=== PATIENT | female | born 1955 | race Caucasian/White ===

== ENCOUNTER 2022-01-25 12:09 | Emergency (ER) | payer MEDICARE, SELFPAY ==
[2022-01-25 12:21] VITALS: BP 150/86; PULSE 87; RESP 14; TEMP 36.6; O2SAT 99
--- NOTE | 2022-01-25 12:37 | ED.EXTPRO ---
HPI - Extremity Problem General Chief complaint: Extremity Injury, Lower Stated complaint: Both Knee Pain Time Seen by Provider: 01/25/22 12:40 Source: patient and RN notes reviewed Mode of arrival: ambulatory Limitations: no limitations History of Present Illness HPI Narrative: 66-year-old female presents to the [facility] with complaints of both the aching and stiffness. Patient reports for last weeks she has had increased stiffness to her bilateral knees [place]. Patient reports that several years ago when she was working [place] she had fallen and was told to get an MRI which she never did. Patient is insisting on a medication called Olfin [place] which she was [place]. Patient does have full range of motion. No bruising, redness noted. Reports more of a stiffness and not a tenderness on palpation. Worse with movement. Currently does not have a primary care provider. Will refer 1 Related Data Allergies Allergy/AdvReac Type Severity Reaction Status Date / Time No Known Allergies Allergy Verified 01/25/22 12:31 Review of Systems Review of Systems: All systems reviewed & are unremarkable except as noted in HPI and below Constitutional: Constitutional: Reports no additional constitutional complaints, Denies chills and Denies fever(s) Eyes: Eyes: Reports no additional eye complaints ENT: Reports system reviewed and no additional complaints, except as documented Cardiovascular: Cardiovascular: Reports no additional cardiovascular complaints Respiratory: Respiratory: Reports no additional respiratory complaints Gastrointestinal: Gastrointestinal: Reports no additional gastrointestinal complaints Musculoskeletal: Musculoskeletal: Reports as per HPI, Reports arthralgias and Denies joint swelling Integumentary/Breasts: Skin/Breast: Reports system reviewed and no additional complaints, except as docu Neurologic: Reports system reviewed and no additional complaints, except as documented Psychiatric: Psychiatric: Reports no additional psychiatric complaints Allergic/Immunologic: Allergic/Immunologic: Reports no additional allergic/immunologic complaints PMFSH Comments At the time of my signature, I reviewed and agree with the nursing past medical, surgical, social, and family history. There is no relevant family history pertinent to the patient complaint. Exam Const: General: healthy appearing, no acute distress, alert and well nourished Nutritional Appearance: well nourished and obese Orientation/consciousness: patient oriented x3 Limitations: no limitations HENMT: Head: normal to inspection Ears: external ears normal Eyes: General: appearance normal, both eyes and all related structures Pupils: Equal, round and reactive pupils present Neck: Neck: normal visual inspection, no lymphadenopathy and no meningeal signs Chest: Chest palpation & inspection: normal inspection of the chest Resp: Effort & Inspection: normal respiratory effort and no use of accessory muscles Auscultation: clear to auscultation bilaterally, no crackles, no rales, no rhonchi and no wheezes Cardio: Rate: regular rate Rhythm: regular rhythm GI: GI Palp: Yes Soft to palpation and No Tenderness to palpation present (GI) Skin: General skin exam: normal color Rashes: no rashes Wounds: no wounds Neuro: General: patient oriented x3, moves all extremities, no meningeal signs and no focal motor deficits Cranial nerves: Yes Equal, round and reactive pupils present Speech: normal speech Gait exam (Neuro): Normal gait present Extrem: General: normal to inspection, full ROM and capillary refill normal Right lower extremity: knee Details: normal to inspection and normal ROM; no tenderness, no swelling, no lacerations, no ecchymosis, no penetrating wound and no deformity Left lower extremity: knee Details: normal to inspection and normal ROM; no tenderness and no swelling Psych: Appeara
== END 2022-01-25 12:56 | disposition home or self-care (01) ==
PROVIDERS: Emergency Provider Nurse Practitioner
DX: M25.562 Pain in left knee (principal); M25.561 Pain in right knee
CPT/HCPCS: 99203; G0463

== ENCOUNTER 2022-02-22 10:00 | Outpatient (CLI) | payer MEDICARE, SELFPAY ==
[2022-02-22 13:05] LABS: Basophils Absolute Auto 0.1 K/mm3 (0.0-0.1); Basophils Percent Auto 0.8 % (0.2-1.2); Eosinophils Absolute Auto 0.2 K/mm3 (0-0.3); Eosinophils Percent Auto 2.9 % (0-4.4); Hemoglobin 13.7 g/dL (12.0-15.0); Immature Granulocyte Absolute 0.01 K/mm3 (0.00-0.031); Immature Granulocyte Percent A 0.1 % (0-0.5); Lymphocytes Absolute Auto 1.99 K/mm3 (0.9-3.2); Lymphocytes Percent Auto 25.9 % (18.3-44.2); Mean Corpuscular HGB Conc 32.6 g/dl (32-36); Mean Corpuscular Hemoglobin 29.7 pg (26-34); Mean Corpuscular Volume 90.9 fl (80-100); Mean Platelet Volume 10.3 fl (7.4-10.4); Monocytes Absolute Auto 0.9 K/mm3 (0.1-0.6); Monocytes Percent Auto 11.2 % (2.6-8.5); Neutrophils Absolute Auto 4.6 K/mm3 (1.3-6.7); Neutrophils Percent Auto 59.1 % (45.5-73.1); Platelet Count Result 342 k/mm3 (150-375); Red Blood Count 4.62 M/mm3 (4.2-5.4); Red Cell Distribution Width 13.2 % (11.5-14.5); White Blood Count 7.7 K/mm3 (4.5-10.0)
[2022-02-22 13:09] LABS: Alanine Aminotransferase 28 U/L (6-35); Albumin Level 4.4 g/dL (3.5-5.1); Alkaline Phosphatase 150 U/L (38-126); Anion Gap 11 mmol/L (8-16); Aspartate Amino Transferase 53 U/L (14-36); Bilirubin,Total 0.7 mg/dL (0.2-1.3); Blood Urea Nitrogen 14 mg/dL (7-17); Calcium 9.3 mg/dL (8.4-10.2); Carbon Dioxide 28 mmol/L (22-30); Chloride 102 mmol/L (98-107); Cholesterol 225 mg/dL (0-200); Estimated Glomerular Filt Rate > 60; Glucose 106 mg/dL (65-110); HDL Direct 60 mg/dL; Potassium 4.2 mmol/L (3.4-5.0); Sodium 141 mmol/L (137-145); Triglycerides 96 mg/dL (<150)
[2022-02-22 13:20] LABS: LDL Cholesterol Direct 103 mg/dL
[2022-02-22 13:23] LABS: Vitamin D 25 Hydroxy 19.4 ng/mL
[2022-02-22 13:36] LABS: Thyroid Stimulating Hormone Reflex 0.945 uIU/mL (0.465-4.68)
[2022-02-22 14:11] LABS: Hemoglobin A1C 6.3 % (<5.7)
== END 2022-02-22 10:01 | disposition home or self-care (01) ==
LOC: ANHGOSHLAB 10:04
PROVIDERS: PCP Family Medicine; Visit Provider Family Medicine
DX: R03.0 Elevated blood-pressure reading, without diagnosis of hypertension (principal); Z79.899 Other long term (current) drug therapy; E55.9 Vitamin D deficiency, unspecified; E78.5 Hyperlipidemia, unspecified; E53.8 Deficiency of other specified B group vitamins; M25.561 Pain in right knee; M25.562 Pain in left knee; Z79.1 Long term (current) use of non-steroidal anti-inflammatories (NSAID); R73.9 Hyperglycemia, unspecified
CPT/HCPCS: 36415; 80053; 80061; 82306; 82607; 83036; 84443; 85025

== ENCOUNTER 2022-03-17 11:33 | Emergency (ER) | payer MEDICARE, SELFPAY ==
[2022-03-17 12:21] VITALS: BP 117/68; PULSE 96; RESP 20; O2SAT 97
--- NOTE | 2022-03-17 13:06 | ED.URI ---
HPI - URI/Sore Throat General Chief Complaint: Upper Respiratory Infection Stated Complaint: Weakness,Fatique Time Seen by Provider: 03/17/22 13:06 Source: patient Mode of arrival: ambulatory Limitations: no limitations History of Present Illness HPI Narrative: A 66-year-old female presents with complaint of cough, fatigue, body aches, chills, nasal congestion, sore throat for 4 days. States that it has been 4 days and she does not understand why she still does not feel better. Is taking [id number] medications to treat her symptoms. Denies chest pain and shortness breath. Reports generalized weakness, decreased appetite. All Systems reviewed and negative except as noted above. Related Data Allergies Allergy/AdvReac Type Severity Reaction Status Date / Time No Known Allergies Allergy Verified 03/17/22 12:10 Review of Systems Review of Systems: CONSTITUTIONAL: Denies fever, chills, or sweats. reports fatigue. EYES: Denies visual changes, redness, or discharge. ENT: Reports rhinorrhea, congestion, sore throat. Denies otalgia. CARDIOVASCULAR: Denies chest pain, palpitations, or edema. RESPIRATORY: reports cough. Denies dyspnea. GASTROINTESTINAL: Denies abdominal pain, nausea, vomiting, or diarrhea. GENITOURINARY: Denies dysuria or hematuria. SKIN: Denies rash or itching. MUSCULOSKELETAL: Denies back pain, joint pain, or myalgia. NEUROLOGIC: Denies headache, numbness, or weakness. PSYCHIATRIC: Denies anxiety or depression. All other systems reviewed are negative, except as documented in HPI. [facility] Surgical History Surgical History History of tonsillectomy (~1959) Family History Family History Mother Diabetes mellitus Cerebrovascular accident Social History Social History Smoking status: Never smoker Alcohol intake: current Substance use: never Substance use type: does not use Lack of Transportation: No Lack of Food: Never True Current Housing: I Have Housing Concerned About Future Housing: No Difficulty Paying Gas/Electric Bills: No Difficulty Paying for Meds: No Currently Unemployed: No Education: High School Diploma/GED Difficulty w/ Childcare or Family Care: No Course Course Level of Care: Express Care Visit Vital Signs Vital signs: Vital Signs Pulse Rate 96 03/17/22 12:21 Respiratory Rate 20 03/17/22 12:21 Blood Pressure 117/68 03/17/22 12:21 Pulse Oximetry 97 03/17/22 12:21 Oxygen Delivery Room Air 03/17/22 12:21 Pulse Rate 96 03/17/22 12:21 Respiratory Rate 20 03/17/22 12:21 Blood Pressure 117/68 03/17/22 12:21 Pulse Oximetry 97 03/17/22 12:21 Oxygen Delivery Room Air 03/17/22 12:21 reviewed MDM - URI/Sore Throat MDM Narrative Medical decision making narrative: decreased lung sounds in lower lung cordero. Negative influenza test. Patient reports that she will do a home COVID test when she gets home. Due to not having x-ray today will treat for pneumonia with antibiotic due to decreased lower lung sounds. Patient is aware of diagnosis, understands and agrees to treatment plan. Anticipatory guidance given. Patient agrees to follow-up as directed and is aware of reasons to seek care at the emergency department. Portions of this record may have been created with voice recognition software Differential Diagnosis Differential diagnosis: Likely upper respiratory infection, viral infection and influenza Lab Data Labs: Influenza A Screen Negative Reference Range: Negative Influenza B Screen Negative Reference Range: Negative Discharge Plan Discharge Clinical Impression: Acute upper respiratory infection Patient
== END 2022-03-17 13:25 | disposition home or self-care (01) ==
PROVIDERS: Emergency Provider Nurse Practitioner Family; PCP Family Medicine
DX: J06.9 Acute upper respiratory infection, unspecified (principal)
CPT/HCPCS: 87804; 99213; G0463

== ENCOUNTER 2023-06-25 10:04 | Outpatient (CLI) | payer MEDICARE, SELFPAY ==
[2023-06-25 14:40] LABS: Basophils Absolute Auto 0.1 K/mm3 (0.0-0.1); Basophils Percent Auto 0.9 % (0.2-1.2); Eosinophils Absolute Auto 0.1 K/mm3 (0-0.3); Hematocrit 43.9 % (37.0-47.0); Hemoglobin 13.6 g/dL (12.0-15.0); Immature Granulocyte Absolute 0.02 K/mm3 (0.00-0.031); Immature Granulocyte Percent A 0.3 % (0-0.5); Lymphocytes Absolute Auto 1.59 K/mm3 (0.9-3.2); Lymphocytes Percent Auto 23.7 % (18.3-44.2); Mean Corpuscular Hemoglobin 29.4 pg (26-34); Mean Platelet Volume 10.9 fl (7.4-10.4); Monocytes Absolute Auto 0.9 K/mm3 (0.1-0.6); Monocytes Percent Auto 12.6 % (2.6-8.5); Neutrophils Absolute Auto 4.1 K/mm3 (1.3-6.7); Neutrophils Percent Auto 61.5 % (45.5-73.1); Platelet Count Result 358 k/mm3 (150-375); Red Blood Count 4.62 M/mm3 (4.2-5.4); Red Cell Distribution Width 13.4 % (11.5-14.5); White Blood Count 6.7 K/mm3 (4.5-10.0)
[2023-06-25 15:21] LABS: Free T4 Free Thyroxine 1.11 ng/mL (0.78-2.19)
[2023-06-25 15:26] LABS: Alanine Aminotransferase 27 U/L (6-35); Albumin Level 4.3 g/dL (3.5-5.1); Alkaline Phosphatase 132 U/L (38-126); Anion Gap 6 mmol/L (8-16); Aspartate Amino Transferase 52 U/L (14-36); Bilirubin,Total 1.2 mg/dL (0.2-1.3); Blood Urea Nitrogen 16 mg/dL (7-17); Calcium 9.5 mg/dL (8.4-10.2); Carbon Dioxide 29 mmol/L (22-30); Chloride 105 mmol/L (98-107); Estimated Glomerular Filt Rate > 60; Glucose 122 mg/dL (65-110); Potassium 3.7 mmol/L (3.4-5.0); Sodium 140 mmol/L (137-145)
[2023-06-25 17:49] LABS: Cholesterol 241 mg/dL (0-200); HDL Direct 59 mg/dL; Triglycerides 99 mg/dL (<150)
[2023-06-25 18:00] LABS: LDL Cholesterol Direct 135 mg/dL
[2023-06-28 09:47] LABS: Triiodothyronine T3 Free 2.9 pg/mL (2.3-4.2)
[2023-06-28 15:19] LABS: Vitamin D 1,25 (OH)2 Total 65 pg/mL (18-72); Vitamin D2 1,25 (OH)2 <8 pg/mL; Vitamin D3 1,25 (OH)2 65 pg/mL
== END 2023-06-25 10:05 | disposition home or self-care (01) ==
LOC: ANHGOSHLAB 10:06
PROVIDERS: PCP Family Medicine; Visit Provider Nurse Practitioner Family
DX: E55.9 Vitamin D deficiency, unspecified (principal); I10 Essential (primary) hypertension; Z13.220 Encounter for screening for lipoid disorders; E53.8 Deficiency of other specified B group vitamins
CPT/HCPCS: 36415; 80053; 80061; 82607; 82652; 84439; 84443; 84481; 85025; 87086

== ENCOUNTER 2023-06-25 15:19 | Outpatient (NON) | payer MEDICARE, SELFPAY | END 2023-06-25 15:20 | disposition home or self-care (01) | LOC: ANHGOSHLAB 15:21 | PROVIDERS: PCP Family Medicine; Visit Provider Nurse Practitioner Family | DX: N39.0 Urinary tract infection, site not specified (principal) | CPT/HCPCS: 87086 ==

== ENCOUNTER 2023-07-08 11:44 | Outpatient (CLI) | payer MEDICARE, SELFPAY ==
[2023-07-08 15:00] LABS: Hemoglobin A1C 5.9 % (<5.7)
[2023-07-08 15:56] LABS: Hepatitis B Surface Antigen Negative (Negative)
[2023-07-08 16:02] LABS: HAV RESULT Negative (Negative); Hepatitis B Core IgM Result Negative (Negative)
[2023-07-08 16:14] LABS: Hepatitis C Virus Antibody Negative (Negative)
== END 2023-07-08 11:45 | disposition home or self-care (01) ==
LOC: ANHGOSHLAB 11:46
PROVIDERS: PCP Family Medicine; Visit Provider Family Medicine
DX: E78.5 Hyperlipidemia, unspecified (principal); R73.03 Prediabetes; R74.8 Abnormal levels of other serum enzymes; R79.89 Other specified abnormal findings of blood chemistry; R94.5 Abnormal results of liver function studies
CPT/HCPCS: 36415; 80074; 83036

== ENCOUNTER 2024-02-07 10:01 | Emergency (ER) | payer MEDICARE, OTHER, SELFPAY ==
[2024-02-07 10:16] VITALS: BP 138/91; PULSE 74; RESP 16; TEMP 37.2; O2SAT 99
[2024-02-07 10:17] VITALS: BP 138/91; PULSE 74; RESP 16; TEMP 37.2; O2SAT 99
--- NOTE | 2024-02-07 10:57 | ED_ITS ---
HPI - General Adult General Chief complaint: Upper Respiratory Infection Stated complaint: throat hurts,cough with mucus Source: patient Mode of arrival: ambulatory Limitations: no limitations History of Present Illness HPI narrative: Patient presents for evaluation of sick symptoms for last 8 days. Symptoms include sinus congestion, thick yellow drainage from the nares, sore throat in the morning from postnasal drainage, productive cough of yellow/green sputum. No fever, chills nausea, vomiting, diarrhea. She has been taking NyQuil for symptoms. She has a history of recurrent sinusitis that seems to happen in the blayne of each year. She does not smoke. No recent sick contacts to her knowledge. Related Data Allergies Allergy/AdvReac Type Severity Reaction Status Date / Time No Known Allergies Allergy Verified 02/07/24 10:14 Review of Systems Review of Systems: CONSTITUTIONAL: Denies fever, chills, or sweats. EYES: Denies visual changes, redness, or discharge. ENT: Reports sinus congestion, thick yellow/green, and sore throat in the morn ing from postnasal drainge CARDIOVASCULAR: Denies chest pain, palpitations, or edema. RESPIRATORY: Reports productive cough of yellow/green sputum GASTROINTESTINAL: Denies abdominal pain, nausea, vomiting, or diarrhea. GENITOURINARY: Denies dysuria or hematuria. SKIN: Denies rash or itching. MUSCULOSKELETAL: Denies back pain, joint pain, or myalgia. NEUROLOGIC: Denies headache, numbness, dizziness, or weakness. PSYCHIATRIC: Denies anxiety or depression. [facility] Past Medical History Medical History Dyslipidemia Prediabetes Vitamin B12 deficiency Vitamin D deficiency Surgical History Surgical History History of tonsillectomy (~1959) Family History Family History Mother Diabetes mellitus Cerebrovascular accident Social History Social History Smoking status: Never smoker Alcohol intake: current Substance use: never Substance use type: does not use Do You Feel Safe in your Home?: Yes Lack of Transportation: No Lack of Food: Never True Current Housing: I Have Housing Concerned About Future Housing: No Difficulty Paying Gas/Electric Bills: No Difficulty Paying for Meds: No Currently Unemployed: No Education: Master's Degree or Higher Difficulty w/ Childcare or Family Care: No Living arrangements: with family Occupation/Education: retired Agree to blood products: Yes Exam Narrative: GENERAL: Well-appearing, well-nourished, and in no acute distress. HEAD: Normocephalic, atraumatic. EYES: PERRLA and EOMI. ENT: Thick yellow/green drainage in the nares. Mucous membranes moist. Oropharynx without tonsillar hypertrophy exudate or other lesions. Bilateral TMs pearly thomas nonbulging NECK: Supple. No adenopathy or masses. No carotid bruits or JVD CHEST: Clear to auscultation. No respiratory distress. No wheezes rales or rhonchi HEART: Regular rate and rhythm. No murmur heard. Normal peripheral pulses. ABDOMEN: Soft, nontender, nondistended, normal active bowel sounds. EXTREMITIES: Normal range of motion. No edema. SKIN: Warm, dry, no rash. NEURO: No focal deficits. Alert and oriented x3. PSYCH: Normal mood and affect. Course Course Emergency Course: This is a 68 year old female who presented for evaluation of sick symptoms. She meets criteria for ABRS based upon duration of time in which she has been symptomatic and nature of her discharge. Will dc with augmentin. Increase hydration. OTC agents for symptom management. Follow up with primary provider. Go to the ER for worsening symptoms. Pt in agreement with plan of care. Level of Care: Express Care Visit Vital Signs Vital signs: Vital Signs Temperature 37.2 C 02/07/24 10:16 Pulse Rate 74 02/07/24 10:16 Respiratory Rate 16 02/07/24 10:16 Blood Pressure 138/91 H 02/07/24 10:16 Pulse Oximetry 99 02/07/24 10:16 Oxygen Delivery Room Air 02/07/24 10:16 Temperature 37.2 C 02/07/24 10:17 Pulse Rate 74 02/07/24 10:17 Respiratory Rate 16 02/07/24 10:17 Blood Pressure 138/91 H 02/07/24 10:17 Pulse Oximetry 99 02/07/24 10:17 Oxygen Delivery Room Air 02/07/24 10:17 Medical Decision Making Vital Signs Vital Signs: Vital Signs Temperature 37.2 C 02/07/24 10:16 Pulse Rate 74 02/07/24 10:16 Respiratory Rate 16 02/07/24 10:16 Blood Pressure 138/91 H 02/07/24 10:16 Pulse Oximetry 99 02/07/24 10:16 Oxygen Delivery Room Air 02/07/24 10:16 Temperature 37.2 C 02/07/24 10:17 Pulse Rate 74 02/07/24 10:17 Respiratory Rate 16 02/07/24 10:17 Blood Pressure 138/91 H 02/07/24 10:17 Pulse Oximetry 99 02/07/24 10:17 Oxygen Delivery Room Air 02/07/24 10:17 Discharge Plan Discharge Clinical Impression: Acute bacterial sinusitis Patient Disposition: Home, Self-Care Condition: Stable Instructions: Antibiotic Form, Sinusitis (ED) Patient Language: Turkmen Prescriptions: New amoxicillin-pot clavulanate 875-125 mg tablet 1 tablet PO Q12H Qty: 20 0RF No Action cholecalciferol (vitamin D3) 50 mcg (2,000 unit) tablet 50 mcg PO DAILY Qty: 90 2RF cyanocobalamin (vitamin B-12) 1,000 mcg tablet, sublingual 1,000 mcg sublingual DAILY Qty: 90 1RF Follow-up/Referrals: Parrish Naylor MD [Primary Care Provider] - Time of Disposition: 10:57
== END 2024-02-07 11:00 | disposition home or self-care (01) ==
PROVIDERS: Emergency Provider Nurse Practitioner; PCP Family Medicine
DX: J01.90 Acute sinusitis, unspecified (principal); E78.5 Hyperlipidemia, unspecified; R73.03 Prediabetes
CPT/HCPCS: 99213; G0463

== ENCOUNTER 2024-09-16 13:01 | Outpatient (CLI) | payer MEDICARE, SELFPAY ==
--- NOTE | 2024-09-16 13:12 | ECG_ITS ---
Test Date: 2024-09-16 13:37:53 Measurements Intervals [place] Rate: 76 P: -20 MN: 154 QRS: 15 QRSD: 94 T: 35 QT: 369 QTc: 416 Interpretive Statements SINUS RHYTHM WITH OCCASIONAL VENTRICULAR PREMATURE COMPLEXES BASELINE WANDER- I, II, III, V1-V6 BORDERLINE ECG No previous ECG available for comparison Electronically Signed On 09-16-2024 13:51:46 CDT by Esa Maguire D.O.
--- OUTSIDE RECORDS SUMMARY | 2024-09-16 13:37 | XMS_ITS | Clinical Summary ---
[facility] Organization [facility] Address [id number] [place] [id number] Care Team Providers Care Firefighting Equipment Specialist Name Role Phone Unavailable Primary Care Provider Unavailabl e Allergies No known active allergies Medications No known medications Active Problems No known active problems Encounters Date Type Department Care Team Description 08/31/2024 External Device Data [facility] ABSTRACTION Provider, Abstract 08/26/2024 External Device Data [facility] ABSTRACTION Provider, Abstract 08/25/2024 External Device Data [facility] ABSTRACTION Provider, Abstract 08/24/2024 External Device Data [facility] ABSTRACTION Provider, Abstract 06/23/2024 External Device Data [facility] ABSTRACTION Provider, Abstract from Last 3 Months Family History Medical History Relation Name Comments No Known Problems Father Stroke Mother Relation Name Status Comments Father Alive Mother Social History Tobacco Use Types Packs/Day Years Used Date Smoking Tobacco: Never Smokeless Tobacco: Never Tobacco Cessation:Counseling Given: Not Answered Alcohol Use Standard Drinks/Week Comments Never 0 (1 standard drink = 0.6 oz pur e alcohol) Comments Unknown Sex and Gender Information Value Date Recorded Sex Assigned at Not on file Legal Sex Female 12:35 PM CDT Gender Identity Not on file Sexual Orientation Not on file Plan of Treatment Health Maintenance Due Date Last Done Comments DTAP/TDAP/TD VACCINES (1 - Tdap) 1973 BREAST CANCER SCREENING 1994 COLORECTAL SCREENING 1999 Colorectal Cancer Screening 1999 FIT-DNA Q 3 years 1999 FIT/FOBT Q 1 year 1999 Flex Sig/CT Colonography Q 5 years 1999 PNEUMOCOCCAL VACCINE 50+ YEA RS (1 of 1 - PCV) 2004 ZOSTER VACCINE (1 of 2) 2004 OSTEOPOROSIS SCREENING 2019 INFLUENZA VACCINE (#1) 2023 COVID-19 Vaccine (3 - 4- season) 2023, 06/07/2020 RSV VACCINE (60+ or ) (1 - 1-dose 75+ series) 2029 Insurance MEDICARE PART A AND B [facility]
--- OUTSIDE RECORDS SUMMARY | 2024-09-16 13:37 | XMS_ITS | Referral Summary ---
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 Risks, benefits and alternatives were discussed. Risks included but were not limited to pain, bleeding, scarring, recurrence, and possible need for additional procedures. Following this discussion, the patient wishes to proceed with Bilateral upper eyelid lesion excision. This was performed today without any complications. They will follow-up as needed. 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
--- OUTSIDE RECORDS SUMMARY | 2024-09-16 13:37 | XMS_ITS | Patient Health Record ---
Author Organization [facility] Address [address] [address] Care Team Providers Care Cdc Associate Name Role Phone Lorri Naylor Primary Care Provider Un available Dot Fong Unavailable [phone] Allergies No Known Allergies Reason For Referral No Information Medications Medication SIG (Take, Route, Frequency, Duration) Notes Start Date End Date Status Triamcinolone Acetonide 0.5 % APPLY TOPICALLY TO THE AFFECTED AREA DAILY NEEDED FOR ECZEMA External for 7 Days Active Vitamin D3 50 MCG (2000 UT) TAKE 1 TABLE T BY MOUTH DAILY. Oral for 90 Days Active B-12 1000 MCG TAKE 1 TABLET BY STEFANIE TH DAILY. Oral for 90 Days Active Estradiol 0.1 MG/GM Vaginal for 90 Days Active Social History Tobacco Use: Social History Observation Description Date Details (start date - stop date) Never Smoker NA - NA Tobacco Control (Standard) Question Answer Notes Tobacco use: Nonsmoker Vital Signs Height 66 in 05/10/2024 Weight 183 lbs 05/10/2024 BMI 29.53 kg/m2 05/10/2024 Encounters Encounter Location Date Provider Diagnosis [facility] [address] [phone] 05/10/2024 Dot Fong Ingrown toenail L60.0 ; Injury of toenail of right foot, initial encounter S99.921A and Pain around toenail, right foot M79.674 Assessments Encounter Date Diagnosis (ICD Code) Assessment Notes Treatment Notes Treatment Clinical Notes Section Notes 05/10/2024 Ingrown toenail (ICD-10 - L60.0) Patient visit today included a review of medical history, review of systems, physical exam and discussion of exam findings, and discussion of diagnoses and treatment options. Discussed ingrown toenail condition and explained in detail conservative and surgical options of care including debridement / slant back procedure vs nail avulsion vs matrixectomy. I explained that it appears she may have had an injury to the nail and there is a new toenail growing in. Discussed pros and cons of each procedure including temporary relief vs more permanent relief with matrixectomy procedure but longer healing time.She had a slight trimming of the nail performed. Pain was alleviated. She will continue to monitor the nail and will call with any further issues. 05/10/2024 Injury of toenail of right foot, initial encounter (ICD-10 - S99.921A) 05/10/2024 Pain around toenail, right foot (ICD-10 - M79.674) Plan Of Treatment No Information Insurance Providers Payer Name Payer Address Payer Phone Subscriber Number Group Number Insured Name Patient Relationship to Insured Coverage Start Date Coverage End Date Medicare [address] [facility] [place] [id number] Blanche Magallon Self - patient is the insured [facility] [address] [place] [id number] Blanche Magallon Self - patient is the insured Medical (General) History Surgical History Surgery Date(Month/Year) hallux nail matrixectomy
--- OUTSIDE RECORDS SUMMARY | 2024-09-16 13:37 | XMS_ITS | Clinical Summary ---
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 Risks, benefits and alternatives were discussed. Risks included but were not limited to pain, bleeding, scarring, recurrence, and possible need for additional procedures. Following this discussion, the patient wishes to proceed with Bilateral upper eyelid lesion excision. This was performed today without any complications. They will follow-up as needed. 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 Not on file Not on file Obstetrics History Plan of Treatment Health Maintenance Due Date Last Done Comments Breast Cancer Screening-Mammogram 1954 Colon Cancer Screening-Colonoscopy 1954 Depression Screening 1954 Fall Risk Assessment 1954 Hepatitis C Screening 1954 Osteoporosis Screening-Bone Density Scan 1954 DTaP/Tdap/Td Vaccine (1 - Tdap) 1965 Hepatitis B Screening 1972 Pneumococcal vaccine 65+ (1 of 1 - PCV) 2004 Zoster Vaccine (1 of 2) 2004 Well Visit 65+ 2019 Covid-19 Vaccine ( season) 2023, 06/07/2020 Influenza Vaccine (Season Ended) 2024 Insurance MEDICARE MEDICARE Care Teams Computational Linguist Relationship Specialty Start Date End Date Serena Martin MD PCP - General Dermatology 02/05/23 No, Physician 07/08/22
== END 2024-09-16 13:02 | disposition home or self-care (01) ==
PROVIDERS: PCP Family Medicine; Visit Provider Family Medicine
DX: R00.2 Palpitations (principal); R94.31 Abnormal electrocardiogram [ECG] [EKG]
CPT/HCPCS: 93005

== ENCOUNTER 2024-10-14 08:22 | Outpatient (CLI) | payer MEDICARE, SELFPAY ==
--- OUTSIDE RECORDS SUMMARY | 2024-10-14 08:26 | XMS_ITS | Referral Summary ---
Author Organization [facility] Address [address] [place] [phone] Care Team Providers Care Employment Program Representative Name Role Phone No, Physician Unavailable Serena Martin MD Primary Car e Provider Encounters Date Type Department Care Team Description 10/04/2024 11:20 AM CDT Office Visit [facility] ENT [address], [address] [place] [address] Pedro Pablo Bailey MD Sensorineural hearing loss (SNHL), unspecified laterality (Primary Dx) 10/04/2024 10:30 AM CDT Procedure visit [facility] Otolaryngology [address] [place] [address] Lauren Massey Au.D. Sensorineural hearing loss, bilateral (Primary Dx); Evaluation of hearing impairment from Last 3 Months Allergies No known active allergies Medications meloxicam (MOBIC) 15 mg tablet Take 15 mg by mouth daily 02/14/2022 Active Active Problems Patient Care Coordination No te Formatting of this note migh t be different from the original. 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
--- OUTSIDE RECORDS SUMMARY | 2024-10-14 08:26 | XMS_ITS | Patient Health Record ---
Author Organization [facility] Address [address] [address] Care Team Providers Care Supervisor Bonding Name Role Phone Lorri Naylor Primary Care Provider Un available Dot Fong Unavailable [phone] Allergies No Known Allergies Reason For Referral No Information Medications Medication SIG (Take, Route, Frequency, Duration) Notes Start Date End Date Status Triamcinolone Acetonide 0.5 % APPLY TOPICALLY TO THE AFFECTED AREA DAILY NEEDED FOR ECZEMA External; Duration: 7 Days Active Vitamin D3 50 MCG (2000 UT) TAKE 1 TABLE T BY MOUTH DAILY. Oral; Duration: 90 Days Active B-12 1000 MCG TAKE 1 TABLET BY STEFANIE TH DAILY. Oral; Duration: 90 Days Active Estradiol 0.1 MG/GM Vaginal; Duration: 9 0 Days Active Social History Tobacco Use: Social History Observation Description Date Details (start date - stop date) Never Smoker NA - NA Tobacco Control (Standard) Question Answer Notes Tobacco use: Nonsmoker Vital Signs Height 66 in 05/10/2024 Weight 183 lbs 05/10/2024 BMI 29.53 kg/m2 05/10/2024 Encounters Encounter Location Date Provider Diagnosis [facility] [address] [phone] 05/10/2024 Dot Fong Ingrown toenail L60.0 ; [...] Coverage End Date Medicare [address] [place], [place] [id number] Blanche Magallon Self - patient is the insured [address] [id number] Blanche Magallon Self - patient is the insured Medical (General) History Surgical History Surgery Date(Month/Year) hallux nail matrixectomy
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
--- OUTSIDE RECORDS SUMMARY | 2024-10-14 08:26 | XMS_ITS | Clinical Summary ---
Author Organization [facility] Address [address] [place] [id number] Care Team Providers Care Assistant Professor Of Art Name Role Phone None, Provider MD Primary Care Provider Unavaila ble Allergies No known active allergies Medications No known medications Immunizations Immunization Administration Dates Next Due PFIZER COVID-19 (ORIGINAL FO RMULATION, PURPLE CAP) mRNA, LNP-S, PF, 30 MCG/0.3 ML DOSE 06/28/2020,06/07/2020 Family History Medical History Relation Comments Hypertension Father Hypertension Mother Stroke Mother Relation Status Comments Father Mother Social History Tobacco Use Types Packs/Day Years Used Date Smoking Tobacco: Never Smokeless Tobacco: Never Alcohol Use Standard Drinks/Week Comments Never 0 (1 standard drink = 0.6 oz pur e alcohol) AUDIT-C Answer Date Recorded Q1: How often do you have a drink containing alc ohol? 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 Gender Identity Not on file Sexual Orientation Not on file Last Filed Vital Signs Vital Sign Reading Time Taken Comments Blood Pressure 127/76 06/21/2023 2:11 PM CDT Pulse 71 06/21/2023 2:11 PM CDT Temperature 36.7 C (98.1 F) 06/21/2023 12:08 PM CDT Respiratory Rate 18 06/21/2023 2:11 PM CDT Oxygen Saturation 100% 06/21/2023 2:11 PM CDT Inhaled Oxygen Concentration - - Weight 90.4 kg (199 lb 4.7 oz) 06/21/2023 12:08 PM CDT Height 167.6 cm (5' 6) 06/21/2023 12:08 PM CDT Body Mass Index 32.17 06/21/2023 12:08 PM CDT Plan of Treatment Health Maintenance Due Date Last Done Comments Colorectal Cancer Screening Colonoscopy (10 Years) 1954 Hepatitis C 1972 DTaP, Tdap and Td Vaccines ( 1 - Tdap) 1973 Mammogram Screening 1994 Pneumococcal Vaccine: 50+ Years (1 of 1 - PCV) 2004 Zoster Vaccines (1 of 2) 2004 Annual Medicare Wellness Visit 2019 Dexa Scan (General) 2019 COVID-19 Vaccine (3 - 2023-2 5 season) 2023 06/28/2020, 06/07/2020 RSV Immunization or 60+ Years (1 - 1-dose 75+ series) 2029 Meningococcal B Vaccine Aged Out No l onger eligible based on patient's age to complete this topic Meningococcal Vaccine Aged Out No arjun matt eligible based on patient's age to complete this topic RSV Immunizations Under 20 Months Aged Out No longer eligible b ased on patient's age to complete this topic Insurance MEDICARE Care Teams Assistant Professor Of Art Relationship Specialty Start Date End Date None, Provider, PCP - General 06/11/20
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
[2024-10-14 09:04] LABS: Hematocrit 43.1 % (37.0-47.0); Hemoglobin 13.6 g/dL (12.0-15.0); Immature Granulocyte Percent A 0.1 % (0-0.5); Lymphocytes Absolute Auto 1.42 K/mm3 (0.9-3.2); Mean Corpuscular HGB Conc 31.6 g/dl (32-36); Mean Corpuscular Hemoglobin 29.3 pg (26-34); Mean Corpuscular Volume 92.9 fl (80-100); Nucleated Red Blood Cells Absolute Auto 0.000 K/mm3 (0.0-0.012); Nucleated Red Blood Cells Perc 0.0 % (0.0-0.2); Platelet Count Result 314 k/mm3 (150-375); Red Blood Count 4.64 M/mm3 (4.2-5.4); White Blood Count 6.9 K/mm3 (4.5-10.0)
[2024-10-14 09:16] LABS: Alanine Aminotransferase 20 U/L (6-35); Albumin Level 4.3 g/dL (3.5-5.1); Alkaline Phosphatase 97 U/L (38-126); Anion Gap 7 mmol/L (4-12); Aspartate Amino Transferase 34 U/L (14-36); Bilirubin,Total 0.5 mg/dL (0.2-1.3); Blood Urea Nitrogen 9 mg/dL (7-17); Calcium 9.6 mg/dL (8.4-10.2); Carbon Dioxide 26 mmol/L (22-30); Chloride 105 mmol/L (98-107); Cholesterol 253 mg/dL (0-200); Estimated Glomerular Filt Rate > 60; Glucose 120 mg/dL (65-110); HDL Direct 68 mg/dL; Potassium 3.9 mmol/L (3.4-5.0); Sodium 138 mmol/L (137-145); Total Protein 7.2 g/dL (6.3-8.2); Triglycerides 80 mg/dL (<150)
[2024-10-14 09:50] LABS: Hemoglobin A1C 6.0 % (<5.7)
[2024-10-14 10:05] LABS: Vitamin B12 486.0 pg/mL (239-931)
[2024-10-14 10:10] LABS: Thyroid Stimulating Hormone Reflex 1.000 uIU/mL (0.465-4.68)
== END 2024-10-14 08:23 | disposition home or self-care (01) ==
PROVIDERS: PCP Family Medicine; Visit Provider Family Medicine
DX: E78.5 Hyperlipidemia, unspecified (principal); E55.9 Vitamin D deficiency, unspecified; E53.8 Deficiency of other specified B group vitamins; R00.2 Palpitations; Z00.00 Encounter for general adult medical examination without abnormal findings; I10 Essential (primary) hypertension; R73.03 Prediabetes
CPT/HCPCS: 36415; 80053; 80061; 82306; 82607; 83036; 84443; 85025